=== PATIENT | male | born 1965 | race Caucasian/White ===

== ENCOUNTER 2018-09-04 09:27 | Emergency (ER) | payer OTHER, SELFPAY ==
[2018-09-04 09:30] VITALS: BP 130/82; PULSE 96; RESP 17; TEMP 36.8; O2SAT 94; BMI 41.5
[2018-09-04 09:33] VITALS: TEMP 36.8
--- NOTE | 2018-09-04 10:27 | ED.VISSUMM ---
- ER Visit Summary Date of Service: 09/04/18 Chief Complaint: Nausea, vomiting, diarrhea History of Present Illness: The patient is a 53 M presenting with nausea, vomiting, diarrhea. He states this has been ongoing for the past 2 weeks. He has had intermittent vomiting and diarrhea. He denies recent antibiotics or travel. He does have sick contacts. He was recently given a new diabetes medicine Bydureon. His last dose was 2.5 weeks ago. He is unsure if this is related. He tried to get in touch with his heel stiffener and has not been heard back from them. Physical Examination: Vitals are stable. Patient is afebrile. Alert no acute distress. HEENT exam is unremarkable. Neck is supple. Lungs are clear and equal bilaterally. Heart is regular rate and rhythm. Abdomen is soft nontender nondistended. No guarding or rebound Extremities are unremarkable. Skin is warm and dry. No focal neurologic deficit. Remainder of exam is unremarkable. Emergency Department Course and Treatment: Patient was given IV fluids, Zofran. CBC showed white count 16.0. Chemistries show glucose 207. Liver lipase are normal. On reevaluation, patient is feeling improved. His abdomen continues to be soft and nontender with no rebound or guarding. He is able to tolerate p.o. in the emergency department. He is given a prescription for Zofran and advised to follow-up with his primary care physician and heel stiffener. Advised return to ED if worsening complaints. Disposition: Discharge home Impression: Vomiting and diarrhea This note was generated with [employer] dictation software. It may contain incorrect words, spelling, and punctuation that were not noted in review of the chart prior to signing ED Disposition - Plan for ED Patient: Instructions: ED Abdominal Pain Unkn Cause Prescriptions: Ondansetron [Zofran Odt] 4 mg PO Q8H PRN PRN #10 tablet PRN Reason: Nausea Referrals: Aleyda Castro MD [Primary Care Provider] -
--- NOTE | 2018-09-04 10:30 | ED.DCSUM_ITS ---
- ER Visit Summary Date of Service: 09/04/18 Chief Complaint: Nausea, vomiting, diarrhea History of Present Illness: The patient is a 53 M presenting with nausea, vomiting, diarrhea. He states this has been ongoing for the past 2 weeks. He has had intermittent vomiting and diarrhea. He denies recent antibiotics or travel. He does have sick contacts. He was recently given a new diabetes medicine Bydureon. His last dose was 2.5 weeks ago. He is unsure if this is related. He tried to get in touch with his surgical services manager and has not been heard back from them. Physical Examination: Vitals are stable. Patient is afebrile. Alert no acute distress. HEENT exam is unremarkable. Neck is supple. Lungs are clear and equal bilaterally. Heart is regular rate and rhythm. Abdomen is soft nontender nondistended. No guarding or rebound Extremities are unremarkable. Skin is warm and dry. No focal neurologic deficit. Remainder of exam is unremarkable. Emergency Department Course and Treatment: Patient was given IV fluids, Zofran. CBC showed white count 16.0. Chemistries show glucose 207. Liver lipase are normal. On reevaluation, patient is feeling improved. His abdomen continues to be soft and nontender with no rebound or guarding. He is able to tolerate p.o. in the emergency department. He is given a prescription for Zofran and advised to follow-up with his primary care physician and surgical services manager. Advised return to ED if worsening complaints. Disposition: Discharge home Impression: Vomiting and diarrhea This note was generated with [employer] dictation software. It may contain incorrect words, spelling, and punctuation that were not noted in review of the chart prior to signing ED Disposition - Plan for ED Patient: Instructions: ED Abdominal Pain Unkn Cause Prescriptions: Ondansetron [Zofran Odt] 4 mg PO Q8H PRN PRN #10 tablet PRN Reason: Nausea Referrals: Aleyda Castro MD [Primary Care Provider] -
[2018-09-04] MEDS: Ondansetron 4 MG/2 ML Vial IV (10:56)
[2018-09-04] MEDS: 0.9% Normal Saline 1,000 ML 1000 ML IV (10:56)
[2018-09-04 10:58] LABS: Absolute Lymphocyte Count 1.85 X10^3/ul (0.83-4.51); Absolute Neutrophil Count 10.1 X10^3/uL (2.0-7.7); Basophil% 0.6 % (0-1); Eosinophils% 18.3 % (0-5); Hematocrit 49.1 % (40-54); Hemoglobin 17.7 g/dl (13.0-16.5); Lymphocyte # 1.85 X10^3/ul (4.0); Lymphocyte % 11.6 % (19-41); Mean Corpuscular Hgb 33.5 pg (27.0-32.0); Mean Platelet Vol. 10.4 fl (6.2-12.0); Monocyte# 0.94 X10^3/uL; Monocyte% 5.9 % (0-10); Neutrophil # 10.11 X10^3/uL (2.7-7.7); Neutrophil % 63.3 % (47-70); Platelet Count 225 K/mm3 (150-450); RBC Distribution Width CV 13.1 % (11.6-14.6); RBC Distribution Width SD 43.9 fl (35.1-43.9); Red Blood Count 5.28 M/mm3 (4.6-6.2)
[2018-09-04 10:59] VITALS: TEMP 36.9
[2018-09-04 11:00] LABS: Differential Indicated SCAN CRITERIA MET; Eosinophil# 2.92 X10^3/uL; POSITIVE COUNT NO; POSITIVE DIFFERENTIAL YES; POSITIVE MORPHOLOGY NO
[2018-09-04 11:10] LABS: Differential Comment SCANNED
[2018-09-04 11:18] LABS: AST(SGOT) 21 U/L (15-37); Alanine Aminotransfer ALT/SGPT 52 U/L (16-61); Albumin, Serum 3.2 g/dL (3.2-5.0); Alkaline Phosphatase 109 U/L (45-117); Anion Gap 8 (5-15); BUN 11 mg/dL (7-18); BUN/Creat Ratio 10.4 RATIO (10-20); Bilirubin, Direct 0.09 mg/dL (0.00-0.30); Calcium,Total 8.2 mg/dL (8.5-10.1); Chloride 108 mmol/L (98-107); Creatinine, Serum 1.06 mg/dL (0.70-1.30); EST Glomerular Filtration Rate 78 mL/min (>60); Est Glom Filt Rate - Afr Amer 94 mL/min (>60); Estimated Creatinine Clearance 84.17 ml/min; Globulin 3.7 g/dL (2.2-4.2); Glucose 207 mg/dL (74-106); Lipase 175 U/L (73-393); Potassium 3.7 mmol/L (3.5-5.1); Protein, Total 6.9 g/dL (6.4-8.2); Sodium Level 138 mmol/L (136-145)
[2018-09-04 11:27] VITALS: RESP 16
[2018-09-04 12:00] VITALS: RESP 17; TEMP 36.8
--- NOTE | 2018-09-04 12:53 | ED.DEP ---
ED Disposition - Plan for ED Patient: Instructions: ED Abdominal Pain Unkn Cause Prescriptions: Ondansetron [Zofran Odt] 4 mg PO Q8H PRN PRN #10 tablet PRN Reason: Nausea Referrals: Aleyda Castro MD [Primary Care Provider] -
[2018-09-04 13:02] VITALS: BP 119/83; PULSE 75; RESP 17; TEMP 36.8; O2SAT 96
[2018-09-06 14:17] LABS: Pathologist Review Reviewed
== END 2018-09-04 13:04 | disposition home or self-care (01) ==
LOC: ED 11:19
PROVIDERS: Emergency Provider Emergency Medicine
DX: R11.2 Nausea with vomiting, unspecified (principal); R19.7 Diarrhea, unspecified; R10.9 Unspecified abdominal pain; E11.9 Type 2 diabetes mellitus without complications; Z90.49 Acquired absence of other specified parts of digestive tract
CPT/HCPCS: 80048; 80076; 83690; 85025; 96361; 96374; 99283; J7030; A4216; J2405

== ENCOUNTER 2020-07-02 20:00 | Emergency (ER) | payer OTHER, SELFPAY ==
[2020-07-02 20:01] VITALS: BP 147/88; PULSE 78; RESP 17; TEMP 35.8; O2SAT 96; BMI 14.8
--- NOTE | 2020-07-02 20:13 | ED.VIS.GEN ---
History of Present Illness Chief Complaint: Lower Extremity Injury Informant: Patient Onset: Hours Context: Sudden Onset Timing: Continuous Quality: Pain Location: Initially left hip now left thigh and calf with swelling Current Severity: Moderate Maximum Severity: Moderate Worsened by: Movement Relieved by: Better if still Associated Symptoms: Question mild shortness of breath no chest discomfort Narrative: Patient is a middle-age male who was diagnosed with Covid May. He has a remote history of DVT left lower extremity, 3.5 years ago. Patient denies fever or chills. Patient denies night sweats. Patient states he has had shortness of breath since diagnosis with Covid. He denies chest discomfort. He denies black or maroon-colored stool. Denies blood in the stool. He denies hematuria. He denies epistaxis. He has no contraindication to anticoagulation. Prior similar symptoms: Yes - Prior DVT Recent Illness/Hospitalization: Yes - COVID-19 infection - Past Medical History (1) COVID-19 Status: Acute (2) History of DVT (deep vein thrombosis) Status: Acute (3) History of hypertension Status: Acute (4) History of hyperlipidemia Status: Acute (5) History of pernicious anemia Status: Acute Past Medical History - Allergies and Home Meds Allergies/Adverse Reactions: Allergies dulaglutide [From Trulicity] Adverse Reaction (Verified 07/02/20 20:03) Nausea/Vom/Diarrhea exenatide [From Bydureon] Adverse Reaction (Verified 07/02/20 20:03) Nausea/Vom/Diarrhea semaglutide [From Ozempic] Adverse Reaction (Verified 07/02/20 20:03) Nausea/Vom/Diarrhea Primary Care Physician: Pradip Schneider III, MD [Primary Care Provider] - Prior records reviewed: Yes Surgical History: noncontributory Lives: Spouse/ Significant Other Smoking Status: Never smoker Alcohol: None Drugs: None Review of Systems General: Reports: Malaise. Denies: Chills, Fever, Subjective Eyes: Denies: Visual changes - bilaterally, Blurred Vision - bilaterally ENT: Denies: Bilateral ear pain, Rhinorrhea, Sore throat Cardiovascular: Denies: Chest pain, Palpitations, Heart racing Respiratory: Reports: Dyspnea, Dyspnea on exertion. Denies: Cough, Sputum, Orthopnea, Paroxysmal nocturnal dyspnea Gastrointestinal: Denies: Abdominal pain, Nausea, Vomiting, Diarrhea, Melena, Hematochezia Genitourinary: Denies: Hematuria, Frequency Musculoskeletal: Reports: Swelling, Extremity Pain. Denies: Myalgias, Arthralgias Skin: Denies: Rash, Wounds Neurological: Denies: Headache, Weakness Hematologic: Denies: Easy bruising, Easy bleeding Physical Exam Vital Signs/Narrative: Vital Signs Temp Pulse Resp BP Pulse Ox 07/02/20 20:01 96.5 F L 78 17 147/88 H 96 Inital Vital Signs reviewed: Yes General: Well nourished, Well developed, Obese Head: Normocephalic, Atraumatic Eyes: Perrl, EOMI Neck: Supple, Nontender Cardiovascular: Regular rate, Regular rhythm, No murmurs, Normal S1, Normal S2 Respiratory: No distress, CTA bilaterally, Chest nontender Abdomen: Soft, Nontender, Nondistended, Normal bowel sounds Rectal: Deferred Back: Nontender Extremities: - - Is swelling of the left lower extremity compared to the right. There is pain along the distribution deep venous system. There is no discoloration of the leg. There is no palpable cords.. Negative for: Nontender, No edema Neurological: Alert, Oriented x3, Cranial nerves II-XII grossly intact, Normal Strength, Normal Sensation Psychological: Normal affect Diagnostic/Tx/Re-eval Differential diagnoses include muscle strain, hematoma versus DVT. I was in form by the service order dispatcher patient has a clot from the left femoral vein past the trifurcation involving the peroneal vein etc. Plan is anticoagulation with Eliquis since he tolerated Eliquis in the past. He was given his first dose in the emergency department and prescription was written. - Medical Decision Making With acute swelling and pain in prior DVT with immobility and recent Covid infection concern patient has DVT. Noninvasive study was ordered. His shortness of breath may be due to the recent Covid infection versus pulmonary embolus. ED Disposition - Plan for ED Patient: Disposition: Home or Assisted Living Diagnosis: Acute deep vein thrombosis (DVT) of femoral vein of left lower extremity Instructions: ED Deep Vein Thrombosis (DVT) Prescriptions: Apixaban [Eliquis] 5 mg PO BID #74 tab Transmission Status: Pending to [id number] Referrals: Pradip Schneider III, MD [Primary Care Provider] - 1 Week
--- NOTE | 2020-07-02 20:26 | US_ITS ---
STUDY: VENOUS DOPPLER ULTRASOUND - BILATERAL LOWER EXTREMITIES REASON FOR EXAM: Male, 54 years old. BILAT SWELLING LT HIP AND CALF PAIN TECHNIQUE: Ultrasound evaluation of the deep vein system to include barillas-scale imaging and compression was performed. Barillas-scale imaging and Doppler sonographic evaluation, including duplex spectral analysis and qualitative color flow sonography, was performed. COMPARISON: None. FINDINGS: RIGHT LEG Common Femoral Vein: Normal compression, spontaneity and augmentation. Normal color Doppler. Common Femoral Vein/Greater Saphenous Junction: Normal compression, spontaneity and augmentation. Normal color Doppler. Deep Femoral Vein: Normal compression, spontaneity and augmentation. Normal color Doppler. Femoral Proximal: Normal compression, spontaneity and augmentation. Normal color Doppler. Femoral Middle: Normal compression, spontaneity and augmentation. Normal color Doppler. Femoral Distal: Normal compression, spontaneity and augmentation. Normal color Doppler. Popliteal Vein: Normal compression, spontaneity and augmentation. Normal color Doppler. Posterior Tibial Vein: Normal compression, spontaneity and augmentation. Normal color Doppler. Peroneal Vein: Normal compression, spontaneity and augmentation. Normal color Doppler. LEFT LEG Intraluminal clot is present throughout the full length of the left superficial femoral vein and extends into the popliteal vein. There is lack of vascular flow and compressibility in these regions due to the intraluminal clot. Clot is also present in the left peroneal vein Common Femoral Vein: Normal compression, spontaneity and augmentation. Normal color Doppler. Common Femoral Vein/Greater Saphenous Junction: Normal compression, spontaneity and augmentation. Normal color Doppler. Deep Femoral Vein: Normal compression, spontaneity and augmentation. Normal color Doppler. Posterior Tibial Vein: Normal compression, spontaneity and augmentation. Normal color Doppler. Peroneal Vein: Normal compression, spontaneity and augmentation. Normal color Doppler. US/Venous Duplex Imag/Nahid Extrem IMPRESSION: 1. Deep venous thrombosis of the left superficial femoral vein, popliteal vein, and the peroneal vein in the calf. 2. No demonstrated deep venous thrombosis of the right leg. Electronically Signed: Marcos Osborne MD at 21:11 EST , Service support ,
[2020-07-02 21:36] VITALS: BP 120/79; PULSE 78; RESP 16
== END 2020-07-02 21:46 | disposition home or self-care (01) ==
PROVIDERS: Emergency Provider Emergency Medicine; PCP Family Medicine
DX: I82.412 Acute embolism and thrombosis of left femoral vein (principal); Z86.718 Personal history of other venous thrombosis and embolism; I10 Essential (primary) hypertension; E78.5 Hyperlipidemia, unspecified; Z86.19 Personal history of other infectious and parasitic diseases
CPT/HCPCS: 93970; 99282

== ENCOUNTER 2021-04-06 12:41 | Emergency (ER) | payer OTHER, SELFPAY ==
[2021-04-06 12:42] VITALS: BP 135/84; PULSE 73; RESP 15; TEMP 36.5; O2SAT 95; BMI 44.2
--- NOTE | 2021-04-06 13:03 | EKG12_ITS ---
Test Reason : SOB Blood Pressure : / mmHG Vent. Rate : 071 BPM Atrial Rate : 071 BPM P-R Int : 176 ms QRS Dur : 118 ms QT Int : 396 ms P-R-T Axes : 046 -35 014 degrees QTc Int : 430 ms Normal sinus rhythm Left axis deviation Poor R wave progression Abnormal ECG Confirmed by LIVIER SAUCEDO, TRISHA ([id number]), marketing editor DORA MEJIA ([id number]) on 04/08/2021 1:23:11 PM Referred By: NIC Confirmed By:TRISHA MAIER MD
[2021-04-06 13:13] VITALS: O2SAT 96
[2021-04-06 13:19] VITALS: PULSE 71; RESP 22; O2SAT 96
--- NOTE | 2021-04-06 13:22 | RAD_ITS ---
HISTORY: SOB EXAMINATION/TECHNIQUE: XR Chest 2 Views: 2 views COMPARISON: None FINDINGS: LINES/DEVICES: None. LUNGS: No pulmonary consolidation, mass, or edema. No pleural effusion or pneumothorax. MEDIASTINUM AND CARDIOVASCULAR STRUCTURES: Cardiac silhouette not enlarged. Central airways and mediastinal contour are unremarkable. BONES AND SOFT TISSUES: No acute bony abnormalities. RAD/Chest PA and Lateral IMPRESSION: No radiographic evidence of acute cardiopulmonary disease. at 1418 Reported and signed by: Twan William MD Electronically Signed: Twan William MD at 14:17 EDT Tel , Service support ,
[2021-04-06 13:29] LABS: Absolute Lymphocyte Count 1.94 X10^3/uL (0.83-4.51); Absolute Neutrophil Count 6.3 X10^3/uL (2.0-7.7); Basophil# 0.04 X10^3/uL; Basophil% 0.4 % (0-1); Eosinophil# 0.17 X10^3/uL; Eosinophils% 1.8 % (0-5); Hematocrit 40.6 % (40-54); Hemoglobin 14.2 g/dL (13.0-16.5); Lymphocyte # 1.94 X10^3/ul (0.83-4.51); Lymphocyte % 20.9 % (19-41); Mean Corpuscular Hgb 32.4 pg (27.0-32.0); Mean Corpuscular Volume 92.7 fL (80-94); Mean Platelet Vol. 10.2 fl (6.2-12.0); Monocyte# 0.86 X10^3/uL; Monocyte% 9.3 % (0-10); NRBC Flagged by Analyzer 0 % (0-5); Neutrophil # 6.25 X10^3/uL (2.7-7.7); Neutrophil % 67.3 % (47-70); Platelet Count 207 K/mm3 (150-450); RBC Distribution Width CV 12.7 % (11.6-14.6); RBC Distribution Width SD 43.1 fl (35.1-43.9); Red Blood Count 4.38 M/mm3 (4.6-6.2); White Blood Count 9.3 K/mm3 (4.4-11.0)
--- NOTE | 2021-04-06 13:30 | ED.VIS.DYS ---
HPI History of Present Illness Chief Complaint: Shortness of Breath Informant: patient Narrative Narrative: Patient presents with exertional dyspnea that is been getting progressively worse for about 2 or so months. He states the last 2 weeks is more noticeable. He called today to get an appointment with his physician and on review of systems questions they referred him in here. They were concerned about pulmonary embolus. He has never had chest pain pressure or discomfort with this. Symptoms are clearly better at rest and worse when he walks. There is a strong family history of heart disease. His father had bypass surgery in his 40s. Patient was diagnosed with a DVT in June that was thought to be related to a likely episode of Covid in May. He is on Eliquis and states that he is taking it regularly. He has not had hemoptysis. He rarely coughs. No sputum production. No fevers or chills. No congestion. No allergic symptoms. No one else is ill. [facility] Medical History CPAP (continuous positive airway pressure) dependence Diabetes Hypertension Sleep apnea Spinal stenosis Home Medications amlodipine 10 mg PO DAILY 09/04/18 [History Last Taken Unknown] carvedilol 12.5 mg PO BID 09/04/18 [History Last Taken Unknown] lisinopril 40 mg PO DAILY 09/04/18 [History Last Taken Unknown] apixaban 5 mg PO BID #74 tab 07/02/20 [Rx Last Taken Unknown] ertugliflozin-sitagliptin 1 tab PO DAILY 07/02/20 [History Last Taken Unknown] ezetimibe [Zetia] 10 mg PO DAILY 04/06/21 [History Last Taken Unknown] pioglitazone [Actos] 30 mg PO DAILY 04/06/21 [History Last Taken Unknown] Allergy/AdvReac Type Severity Reaction Status Date / Time dulaglutide [From Trulicity] AdvReac Nausea/Vom/ Verified 04/06/21 12:45 Diarrhea exenatide [From Bydureon] AdvReac Nausea/Vom/ Verified 04/06/21 12:45 Diarrhea semaglutide [From Ozempic] AdvReac Nausea/Vom/ Verified 04/06/21 12:45 Diarrhea Family History Other Heart disease Surgical History History of cholecystectomy Social History Smoking Status: Never smoker ROS ROS ED Constitutional Constitutional ED: Denies chills or fever(s) Eyes Eyes: Denies blurry vision or change in vision ENT ENT ED: Denies rhinorrhea or sore throat Cardiovascular Cardiovascular: Denies chest pain, orthopnea, palpitations, paroxysmal nocturnal dyspnea or racing heartbeat Respiratory/Chest Respiratory/Chest: Reports cough and dyspnea on exertion; Denies orthopnea, paroxysmal nocturnal dyspnea or sputum Gastrointestinal Gastrointestinal: Denies nausea or vomiting Musculoskeletal Musculoskeletal: Denies arthralgias or myalgias Integumentary Denies Abrasions or rash Neurologic Neurologic: Denies headache(s), paresthesias or weakness Endocrine Endocrinology: Denies polydipsia or polyuria Hematologic/Lymphatic Hematologic/Lymphatic: Reports easy bleeding and easy bruising Allergic/Immunologic Allergic/Immunologic ED: Denies mouth swelling or urticaria EXAM Physical Exam Const Vital Signs: 04/06/21 12:42 04/06/21 13:13 04/06/21 13:19 Temperature 97.7 F L Temperature Source Temporal Pulse Rate 73 71 Respiratory Rate 15 22 H Respiratory Effort Non-Labored Short of Breath Respiratory Depth Normal Respiratory Pattern Normal Blood Pressure 135/84 H Blood Pressure Mean 101 Pulse Ox 95 96 Oxygen Delivery Method Room Air Room Air Room Air 04/06/21 14:00 Temperature Temperature Source Pulse Rate 69 Respiratory Rate 20 H Respiratory Effort Respiratory Depth Respiratory Pattern Blood Pressure 123/75 H Blood Pressure Mean 91 Pulse Ox 96 Oxygen Delivery Method Room Air Positive well nourished, well developed and obese General Appearance ED: well developed and NAD; Negative for pallor Nutritional Appearance: obese HEENT Reports moist mucous membranes atraumatic Eyes General Eye ED: Negative for pale conjunctiva or scleral icterus Neck no JVD Resp normal respiratory effort and clear to auscultation bilaterally Auscultation: Negative for rales, rhonchi, wheezes or diminished lung sounds Cardio regular rate, regular rhythm and no murmurs GI non-tender and non-distended Palpation: soft Back/Spine no CVA tenderness and normal to inspection Extremity normal to inspection General Extremety ED: Negative for edema or tenderness General Extremity: Negative for edema Neuro oriented x3 Sensorium / Orientation: alert Psych mental status grossly normal Thought Process: normal thought process Skin General Skin Exam: Negative for pallor Lesions: no lesions Rashes: no rashes MDM MDM MDM Narrative Medical decision making narrative: Patient's blood work shows a normal CBC. No sign of anemia. Electrolytes are normal. Glucose is high at 277. Troponin is negative despite 2 months of symptoms. BNP is negative. Even though this patient is on Eliquis there were concerns of pulmonary embolus. So we did a CTA. This showed no pulmonary embolus but also no dissection and no other cause for his symptoms. Patient's original plan was to make an appointment to see his doctor. He is okay going home as the symptoms have been predictable for 2 months. He will call Thursday morning for an appointment. Lab Data Attestation: I reviewed the patient's lab results. Labs: Laboratory Results - last 24 hr 04/06/21 04/06/21 04/06/21 13:10 13:10 13:10 WBC 9.3 RBC 4.38 L Hgb 14.2 Hct 40.6 MCV 92.7 MCH 32.4 H MCHC 35.0 RDW Std Deviation 43.1 RDW Coeff of Josue 12.7 Plt Count 207 MPV 10.2 Immature Gran % (Auto) 0.300 Neut % (Auto) 67.3 Lymph % (Auto) 20.9 [place] % (Auto) 9.3 Eos % (Auto) 1.8 Baso % (Auto) 0.4 Absolute Neuts (auto) 6.3 Absolute Lymphs (auto) 1.94 Nucleated RBC % 0 Sodium 138 Potassium 4.3 Chloride 106 Carbon Dioxide 27.0 Anion Gap 5 BUN 18 Creatinine 1.08 Estim Creat Clear Calc 80.74 Est GFR (MDRD) Af Amer 91 Est GFR (MDRD) Non-Af 76 BUN/Creatinine Ratio 16.7 Glucose 277 H Calcium 9.0 Troponin I High Sens 11 B-Natriuretic Peptide 10.9 Radiography Diagnostic Testing: Radiology Impression Chest X-Ray 04/06/21 13:22 IMPRESSION: No radiographic evidence of acute cardiopulmonary disease. at 1418 Reported and signed by: Twan William MD Electronically Signed: Twan William MD at 14:17 EDT Tel , Service support , Chest CTA 04/06/21 14:24 IMPRESSION: Normal CTA chest examination, without a demonstrated pulmonary embolism or arterial dissection. Electronically Signed: Evan Rios DO at 15:54 EDT Tel [phone], Service support , EKG Initial EKG: Comments: EKG done for dyspnea read by me shows sinus rhythm with overall rate of 71. No ectopy. No acute ST elevation or depression. TX interval, QRS duration and QTc are normal. Discharge Plan Triage Chief Complaint: Shortness of Breath ED Provider: Mariano Garcia Dx/Rx/DC Orders Clinical Impression: Dyspnea on exertion Instructions: ED Dyspnea Prescriptions: No Action carvedilol 25 MG tablet 12.5 mg PO BID RF: 0 amlodipine 10 MG tablet 10 mg PO DAILY RF: 0 lisinopril 40 MG tablet 40 mg PO DAILY RF: 0 apixaban 5 MG tablet 5 mg PO BID Qty: 74 RF: 0 ertugliflozin-sitagliptin 1 EACH tablet 1 tab PO DAILY RF: 0 pioglitazone [Actos] 30 mg Tablet 30 mg PO DAILY RF: 0 ezetimibe [Zetia] 10 mg Tablet 10 mg PO DAILY RF: 0 Primary Care Provider: Mynor Connelly Referrals: Mynor Connelly MD [Primary Care Provider] - As soon as possible Disposition Disposition: Home, Self Care
[2021-04-06 13:42] LABS: Anion Gap 5 (5-15); BUN 18 mg/dL (7-18); BUN/Creat Ratio 16.7 RATIO (10-20); Chloride 106 mmol/L (98-107); Creatinine, Serum 1.08 mg/dL (0.70-1.30); EST Glomerular Filtration Rate 76 mL/min (>60); Est Glom Filt Rate - Afr Amer 91 mL/min (>60); Estimated Creatinine Clearance 80.74 ml/min; Glucose 277 mg/dL (74-106); Potassium 4.3 mmol/L (3.5-5.1); Sodium Level 138 mmol/L (136-145); Troponin-I HS 11 pg/mL (3.0-78.0)
[2021-04-06 13:47] LABS: BNP,B-Type NATRIURETIC PEPTIDE 10.9 pg/mL (0-100)
[2021-04-06 14:00] VITALS: BP 123/75; PULSE 69; RESP 20; O2SAT 96
--- NOTE | 2021-04-06 14:24 | CT_ITS ---
STUDY: CTA CHEST REASON FOR EXAM: Male, 55 years old. SOB RADIATION DOSAGE (If Supplied By Facility): CTDIvol = ( 19.74 ) mGy, DLP = ( 730.15 ) mGycm TECHNIQUE: The examination was performed with the intravenous administration of IV 100mL Isovue-370. Post-processing of the angiographic images was performed, with multiplanar reformation and 3D reconstruction. Individualized dose optimization techniques were used for this CT. COMPARISON: None. FINDINGS: Normal enhancement of the main pulmonary artery and right and left pulmonary arteries. Normal enhancement of the bilateral peripheral pulmonary arteries. There is no demonstrated pulmonary embolism. Normal thoracic aorta and visualized great vessels. There is no demonstrated aortic dissection. Normal heart and pericardium. Normal mediastinum. Normal hilar regions. Normal visualized trachea and bronchi. The lungs are well expanded. Normal pulmonary parenchyma. Normal pleura. Normal chest wall structures. Degenerative vertebral changes. Normal visualized upper abdomen. CT/CTA Chest W/WO Contrast IMPRESSION: Normal CTA chest examination, without a demonstrated pulmonary embolism or arterial dissection. Electronically Signed: Evan Rios DO at 15:54 EDT Tel [phone], Service support ,
[2021-04-06 16:55] VITALS: BP 129/78; PULSE 84; RESP 18; O2SAT 97
--- NOTE | 2021-04-06 16:56 | ED.RN ---
THIS NURSE REVIEWED D/C INSTRUCTIONS WITH PT. PT VERBALIZED UNDERSTANDING OF INSTRUCTIONS. IV D/C. IV CATHETER INTACT. PT TOLERATED WELL. PT DENIES FURTHER NEEDS OR QUESTIONS AT THIS TIME
== END 2021-04-06 16:57 | disposition home or self-care (01) ==
PROVIDERS: Emergency Provider Emergency Medicine; PCP Family Medicine
DX: R06.09 Other forms of dyspnea (principal); I10 Essential (primary) hypertension; E11.9 Type 2 diabetes mellitus without complications; G47.30 Sleep apnea, unspecified; Z79.01 Long term (current) use of anticoagulants; Z79.84 Long term (current) use of oral hypoglycemic drugs; Z82.49 Family history of ischemic heart disease and other diseases of the circulatory system; Z86.718 Personal history of other venous thrombosis and embolism; Z86.16 Personal history of COVID-19
CPT/HCPCS: 71046; 71275; 80048; 83880; 84484; 85025; 93005; 99284; Q9967; A4216

== ENCOUNTER → 2021-12-05 | Outpatient (CLI) | payer OTHER, SELFPAY ==
--- NOTE | 2021-12-05 09:09 | CR.HP_ITS ---
CR - History & Physical - General Arrival date:: 12/05/21 Arrival time:: 08:00 Date of Referral:: 11/21/21 Date of CR Evaluation:: 12/05/21 Referring Physician: Bailey Steele Primary Diagnosis: S/P CABG - History of Present Cardiac Event Onset Date: Enter Onset Date of cardiac illnesses in Comment field below Coronary Artery Bypass Graft:: Yes - 10/18/2021 5 vessel bypass Type of Symptoms:: really fatigue, thought related to COVID-19, negative stress test, did calcium study +, went right to surgery no sense in doing heart cath. Were there any complications?: none - Sleep Disorder Evaluation Hx of Sleep Apnea: Yes Do you snore loudly (louder than talking or can be heard through closed doors)?: Yes Do you often feel tired/ fatigued/ sleepy during daytime?: No Has anyone observed you stop breathing during sleep?: Yes History of Hypertension (for STOP score): Yes - Has home CPAP at 8-20cm H2O uses nightly for his SAURABH. STOP Results: Positive - Medications Home Medications: Ambulatory Orders Medication Instructions Recorded amlodipine 10 mg PO DAILY 09/04/18 carvedilol 12.5 mg PO BID 09/04/18 lisinopril 20 mg PO DAILY 09/04/18 apixaban 5 mg PO BID #74 tab 07/02/20 ertugliflozin-sitagliptin 1 tab PO DAILY 07/02/20 ezetimibe [Zetia] 10 mg PO DAILY 04/06/21 pioglitazone [Actos] 30 mg PO DAILY 04/06/21 empagliflozin [Jardiance] mg 12/05/21 insulin glargine 44 unit SUBCUT DAILY 12/05/21 oxygen-air delivery systems 12/05/21 [[facility] Nasal Cpap System] - Allergies Allergies/Adverse Reactions: Allergies dulaglutide [From Trulicity] Adverse Reaction (Verified 04/06/21 12:45) Nausea/Vom/Diarrhea exenatide [From Bydureon] Adverse Reaction (Verified 04/06/21 12:45) Nausea/Vom/Diarrhea semaglutide [From Ozempic] Adverse Reaction (Verified 04/06/21 12:45) Nausea/Vom/Diarrhea Advanced Directives - Advanced Directives 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 Had contact w/person w/symptoms or Covid-19 (+) last 14 days: No Has High Risk Exposures ID'd by Health dept/Inf Control team: No 65 years or older:: No Lives in Assisted Living facility:: No Has a chronic lung disease or moderate to severe asthma:: No Has a serious heart condition:: Yes Diabetic:: Yes Has chronic kidney disease undergoing dialysis:: No Has liver disease:: No - Past Medical Illness Medical History: Past Medical History (Last Updated 12/05/21 @ 09:20 by Khari Dale, CHEMICAL RESEARCH ENGINEER, PLASTICS BENCH MECHANIC, BS) Chronic anticoagulation Z79.01 CPAP (continuous positive airway pressure) dependence Z99.89 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 Mariano Garcia MD) History of cholecystectomy Z90.49 Surgical History: noncontributory - Family History Summary Family History: Family History (Last Reviewed 04/06/21 @ 13:[address] Mariano Garcia MD) Other Heart disease Social History - Smoking History Smoking Status: Never smoker Hx Tobacco Use: No Hx Smoking Exposure: No - Alcohol Use Alcohol Usage: Yes - very rarely - Substance Abuse Hx Substance Use: No - Occupation Occupation (List type of work in comments):: Employed Hours worked per day:: 6 - sometimes 8-12 Hrs Returned to work on:: 10/28/21 - working from home - Hobbies, Recreation, Social Activities Hobbies: None Recreational Activities: I am able to engage in most, but not all activities Social Environment - Status Marital Status: - Current Living Arrangements Living Environment:: Spouse - Children How many children do you have?: 2 Do any of your children live nearby?: Yes - Safety Do you feel safe in your surroundings?: Yes - Assistance Do you need any assistance at home?: none Review of Systems - Review of Systems Hints: Right click = Denies ([place]). Left click = Reports ([place]) Review of Present Symptoms: Reports: Wound Healing, Fatigue - some, Appetite - Normal, Appetite - Special Diet - Diabetic Diet, Sleep - Normal. Denies: Shortness of Breath at Rest, Shortness of Breath with Exertion, Operative Discomfort, Dizziness/Lightheadedness, Heart Arrhythmia/Irregularities, Sexual Changes - Pain Is Patient Pain Free?: Yes Pain Location: none Pain Level: 0/10 Risk Factor Assessment - Vital Signs Temperature: 98.1 F Respiratory Rate: 14 Pulse Ox: 96 Blood Pressure: 128/78 - Pulse Pulse Rate: 68 Pulse Rhythm: Regular - Hypertension Blood Pressure Sitting - Left Arm: 128/78 - Blood Cholesterol/Lipids Total Cholesterol (mg/dL) Goal = less than 200 mg/dL: 248 HDL Cholesterol (mg/dL) Goal = less than 40 mg/dL: 44 LDL Cholesterol (mg/dL) Goal = less than 70 mg/dL: 172 Triglycerides (mg/dL) Goal = less than 150 mg/dL: 162 - Diabetes Diabetic History: Type II, Medication Dependent, Insulin Dependent Nutrition Referral for Diabetes: Yes - Obesity Height: 5 ft 10 in Weight:: 310 lb Weight in Pounds: 310.0 lbs Weight Source: Estimated by Patient Body Mass Index (BMI): 44.4 Nutritional Referral for Obesity: Yes - Physical Inactivity Physical Inactivity: Reg Exercise 30 min/day, Recreational activity - Risk Stratification Risk Guidelines: Lowest Risk: Risk Factor for Smoking, Risk Factor for Diabetes, Risk Factor for Sedentary Lifestyle, Risk Factor for Depression, Moderate Risk: Risk Factor for Dyslipidemia, Risk Factor for Hypertension, Highest Risk: Risk Factor for Obesity - Family History Family History: Family History (Last Reviewed 04/06/21 @ 13:[address] Mariano Garcia MD) Other Heart disease Motivation - Motivation to Participate On a scale of 1 to 10, how prepared are you to commit to attending program?: 9 What do you see as barriers to successfully being able to complete the program?: none What do you see as the benefits of succesfully completing the program? In other words, what do you hope to get out of participating in the program?: get back to normal active lifestyle Are there issues you are dealing with that will interfere with completing the program?: none Do you have a spouse or signficant other, family or friends who will help support you to complete the program?: Yes
[2021-12-05 09:25] VITALS: BP 128/78; PULSE 68; RESP 14; TEMP 36.7; O2SAT 96; BMI 44.4
--- NOTE | 2021-12-05 10:10 | CR.ITP_ITS ---
Diagnosis - General Information Admitting Diagnosis: S/P CABG Secondary Diagnosis: DM TYPE II, HLD, HTN, ASHD, DVT Personal Learning Style:: Audio/Visual, Written Barriers to Learning: No Barriers Stage of change r/t lifestyle modifications:: Action Gave educational material for:: Treating Heart Disease, Emotions & Heart Disease, Stress Management & Relaxation, Sleep Disorders & Heart Disease, How The Heart Works, What it means to have Heart Disease, How Coronary Artery Disease is Diagnosed, Heart Procedures, What Heart Medications Do, Risk Factors & Modifications, Living an Active Life, Nutrition - Education/Goals Individual Counseling: Initial Assessment: Abnormal Cholesterol Levels, High Blood Pressure, Overweight/Obesity - BMI 44.9, Diabetes, Metabolic Syndrome (as evidenced by 3 of 5 A-E below), A. Fasting Blood Sugar >100, B. Waist Circumference >35/Females >40/Males, C. High Triglycerides >150, Hypertension Cardiac Rehabilitation Goals: 1. Maintain the individual as the primary focus of care. 2. To improve the patient's quality of life. 3. Identification of cardiac risk factors and provide cardiac risk factor management. 4. Enhance the psychosocial status of the patient. 5. Reconditioning enough to allow the patient to resume customary activities. 6. Control symptoms of cardiac disease Personal Goals: Initial Assessment: Improve energy level, Participate in home exercise program, Get back to work, or to resume activities faster, Improve knowledge of cardiac disease, Improve muscle strength and endurance, Improve diet and eating habits (eat healthier), Control risk factors (learn risk factor modification) Scale for measuring improvement of personal goals: Enter appropriate number in Comments. 2 = Unchanged. 3 = Slightly Better. 4 = Moderate Improvement. 5 = Met my Goal - Diagnosis & Disease Process Outcomes/Goals: Pt IDs own risk factors & lifestyle modifications by Session 10, Verbalizes symptoms of angina & response by session 3., Pt independently manages Plan/Interventions: Assist Pt to ID & engage in lifestyle modification to reduce CVD risk, Instruct on individual risk factors, Review symptoms of angina & emergency actions, Review secondary diagnosis & identify educational needs. - Safety Referral to Physical Therapy: No Referral to [facility] Case Management: No Fall Risk Assessed:: Yes Assistive Devices:: None Exercise - Initial Assessment - Visit Date of Eval: 12/05/21 Session #:: 0 - STARTING CR ON 12/09/2021 @ 09:30 Mets: Pre-: >7 METS for 30 minutes by discharge - Physician Prescribed Exercise Modalities: Treadmill, Airdyne, NuStep Frequency: 3x/week for 12 weeks [36 sessions] Intensity: 60-80% of age predicted maximum heart rate reserve Current METSs:: 3.0 Target Heart Rate:: 107-140 Resting Blood Pressure: 128/78 EKG Type: NSR Current Physical Activity or Exercising minutes: 30 - Outcomes & Goals Goals:: Verbalizes understanding of THR, RPE & goal METS by session 6, Documents in home exercise log/reports 30 min aerobic 5 day/wk by DC, Demonstrates accurate pulse taking by DC - Intervention & Plan Exercise Program Goals: Instruct on personal THR & RPE, Instruct on MET level & personal MET goal, Show patient to take own pulse /validate performance until accurate, Instruct on home exercise - Physical Activity Home Exercise Physical Activity - Home Exercise: Safe Exercise, Warm-up, Self-monitoring, Cool-Down, Home Exercise > 30 min Daily, Sitting Time <3 hours/daily - Outcomes & Goals Outcomes/Goals: Demonstrates correct Warm-up/exercise Cool-Down (S3) if = 2.5 METs, Verbalizes symptoms of exercise intolerance by Session 3 (S3), Demonstrate safe equipment use (S3) & follows exercise prescrition (6) - Intervention & Plan Plan/Intervention: Instruct warm-up & cool-down if exercising at > 2 METs, Instruct on symptoms of exercise intolerance & actions to take, Instruct & monitor on saf, Assess intial functional capacity & safety risk Nutrition - Initial Assessment - Program Goals Nutrition Program Goals: LDL <100 optimal. 100 - 129 Near optimal. 130 - 159 Borderline High. 160 - 189 High. Total Cholesterol <200 desirable. 200 - 239 Borderline High. >/= 240 High. HDL < 40 Low >/=60 High. Triglycerides <150 desirable. <199 optimal. VlDL 5 - 40. HgbA1C <7%. BMI <25 Patient has diagnosis of Hyperlipidemia (ICD E78)?: Yes - Visit Date of Assessment:: 12/05/21 Session #:: 0 - Cholesterol/Lipids Triglycerides (mg/dL): 162 Total Cholesterol (mg/dL): 248 LDL Cholesterol (mg/dL): 172 HDL Cholesterol (mg/dL): 44 Determine presence & major risk factors that modify LDL goal: Hypertension or hypertensive medication, Family history of premature CHD in Male < 55 years: female <65 yearsFa, Age men > 45 years; women >/= 55 years Outcomes/Goals: Pt IDs own risk factors & lifestyle modifications by Session 10, Verbalizes symptoms of angina & response by session 3., Pt independently manages Intervention/Plan: Instruct on personal lipid levels & lipid goals/NCEP guidelines, Instruct on cholesterol Referral to dietitian:: Yes - MEDICAL NUTRITION - Diabetes (Other Core Measures) Diabetes Type: Diagnosis Type II ICD-10 E11 Outcomes/Goals:: Able to state symptoms of, Able to state, Able to state Intervention/Plan:: Instruct on, Refer to, Instruct on - Weight Mgt (Other Care) Not Applicable: No Height: 5 ft 10 in Weight:: 329 lb BMI: 47.2 Diagnosis Overweight/Obesity BMI> 30% ICD-10 E66: Yes Diagnosis High BMI/Morbid Obesity BMI> 35% ICD-10 Z68: Yes Outcomes/Goals: Pt sets, maintains & shows weight loss goal & trend during rehab Intervention/Plan: Instruct on ideal BMI & set weight loss goal w/patient, Assist pt to ID & incorporate diet changes for weight loss by S9, Refer to Structured Weight Loss program as appropriate, Encourage goal of using 250- 300dcal per session for weight loss - Healthy Eating Habits Will attend diet classes:: Yes Outcomes/Goals:: Consume diet rich in vegs,fruits,whole grain/high fiber,fish,lean meat, Limit sat/trans fats,cholesterol & added salts & sugars Intervention/Plan:: Assess current eating habits - Education Gave educational materials for:: Signs & symptoms of hypoglycemia, Signs & symptoms of hyperglycemia, Relate diabetes to coronary artery disease, Healthy eating Nutrition - 30-Day Assessment Nutrition - 60-Day Assessment Nutrition - 90-Day Assessment Nutrition - Final Assessment Medical - Initial Assessment - Visit Date of Eval: 12/05/21 Session #:: 0 - Medication Compliance Preventative Medication(s):: Aspirin, Statin/lipid, Beta mally, Eliquis H/O mental health issues: depression, anxiety, or addiction?: No Doesn?t believe in the benefits of treatment?: No Believes medications are unnecessary or harmful?: No Has a concern about medication side effects?: No Expresses concern over the cost of medications?: No Outcomes/Goals: Verbalizes medications,desired effect & common side effects @ DC, Pt self-reports following medication regimen, Keeps card in wallet w/medications listed by DC Interventions/plans: Instruct on medication effects & side effects, Instruct importance of taking meds as ordered & assist problem solving - Tobacco Use Tobacco Use: Non-smoker - Hypertension Hypertension Diagnosis:: Hypertension ICD-10 I10 Resting Blood Pressure:: 128/78 [place] [employer] Hypertension Guidelines: [place] [employer] Hypertension Guidelines. Normal BP Less than 120/80. Elevated BP 120/80. Hypertension Stage 1: BP 130-139/80-89. Hypertesnion Stage 2: BP 140 or higher/90 or higher. Hypertension Crisis: BP higher than 180/120 Outcomes/Goals: Able to verbalize/achieve optimal blood pressure <130/80, Incorporates diet changes & exercise for blood pressure control by DC Interventions/plan: Instruct on optimal blood pressure, hypertension & medications, Instruct on effects of sodium, alcohol, stress, exercise &hypertension - Tobacco Cessation Referral Smoking Cessation Referral:: No Individual Education/Counseling:: No Education Schedule Given:: Yes Medical- 30-Day Assessment Medical- 60-Day Assessment Medical- 90-Day Assessment Medical - Final Assessment Psychosocial - Initial Assess - VIsit Date of Eval: 12/05/21 Session #:: 0 Not Applicable: Yes History of previous Mental disease:: No - Psychosocial Test Tool Used:: Finestrella QOL Cardiac, PHQ-9 Questionnaire phq-9 Severity: Severity. 1-4 Minimal Depression. 5-9 Mild Depression. 10-14 Moderate Depression. 15-19 Moderately Sever Depression. 20-27 Severe Depression. Rule: - Referral to Behavioral Health PS - Interventions: Yes Referral to Physician if PHQ-9 if score is 5-9:, Yes Attend Stress Management Classes, No Referral to Behavioral Health if PHQ-9 score >9:, No Referral to [facility] - Outcomes/Goals: See list Psychosocial Outcomes/Goals:: ID's personal stressors & 2 strategies to manage stress by discharge - Intervention/Plan: See List Interventions/Plan:: Assess stressors,coping strategies & signs of derpression on admission, Instruct/assist pt to develop coping & personal stress Mgt strategies, Refer to Physician if appropriate, Instruct patient to recognize signs & symptoms of depression, Instruct patient to recog Psychosocial - 30-Day Assess Psychosocial - 60-Day Assess Psychosocial - 90-Day Assess Psychosocial - Final Assessmen Patient Health Questionnaire Initial Assessment 1. Little interest or pleasure in doing things: Several days 2. Feeling down, depressed, or hopeless: Several days 3. Trouble falling or staying asleep, or sleeping too much: Not at all 4. Feeling tired or having little energy: More than half the days 5. Poor appetite or overeating: Several days 6. Feeling bad about yourself -- or that you are a failure or have let yourself or your family down: Several days 7. Trouble concentrating on things, such as reading the newspaper or watching television: Several days 8. Moving or speaking so slowly that other people could have noticed. Or the opposite - being so fidgety or restless that you have been moving around a lot more than usual: Not at all 9. Thoughts that you would be better off , or of hurting yourself in some way: Not at all How difficult have these problems made it for you to do your work, take care of things at home, or get along with other people?: Somewhat difficult Total Score: 7 VIOLETA-Q SV Test - Statements CAD is a disease of the arteries in the heart: False Examples of risk factors for heart disease: True Angina is chest pain or discomfort: True The benefits of resistance training include: True Eating more meat and dairy products: False Anti-platelet medications such as aspirin are important: True The only effective way to manage stress: False An exercise warm-up slowly increases heart rate: True Prepared, processed foods usually have high sodium: True Depression is common after a heart attack: True The statin medications lower cholesterol: True To control blood pressure, lower the amount of sodium: True If someone gets chest discomfort during walking: False Transfats are partially hydrogenated vegetable oils: True Sleep apnea that is not treated increases the risk: False To control cholesterol, one should become a vegetarian: False Someone knows if he/she is exercising at the right level: True Diabetes cannot be prevented with exercise & health eating: False Stress is a large risk for heart attack: True A diet that can help lower blood pressure is rich in: True - Total Score Total Correct Responses: 20 Self-Efficacy Initial Assessment We would like to know how confident you are in doing certain activities. Please select your confidence level for:: Select your confidence level for the following using the scale 1-10 where 1 is not at all confident and 10 is totally confident. Your score is the average of all 6 responses. Fatigue: How confident are you that you can keep the fatigue caused by your dis ease from interfering with the things you want to do? Select Number: 8 Physical Discomfort or Pain: How confident are you that you can keep the physic al discomfort or pain of your disease from interfering with the things you want to do? Select Number: 7 Emotional Distress: How confident are you that you can keep the emotional distress caused by your disease from interfering with the things you want to do? Select Number: 6 Other Symptoms or Health Problems: How confident are you that you can keep other symptoms or health problems from interfering with the things you want to do? Select Number: 7 Different Tasks and Activities: How confident are you that you can do the different tasks and activities needed to manage your health condition so as to reduce your need to see a doctor? Select Number: 8 Medication: How confident are you that you can do things other than just taking medication to reduce how much your illness affects your everyday life? Select Number: 8 Total Score:: 7 Nutrition Survey - Nutrition Survey Initial Have you lost >10 lbs over the past 2 months without trying?: No Are you following a special diet at home for diabetes, low fat, or low salt?: Yes Are you interested in meeting with a dietitian for help understanding your diet?: Yes Do you eat less than 3 meals a day?: No Do you eat fatty meats (villavicencio, sausage, ribs, etc), fried foods, desserts, large amounts of salad dressings, margarine, butter, or cheese most days?: No Do you have food allergies? [Enter types in comment field]: No Do you eat in restaurants more than 3 times a week?: Yes Do you season food with salt, seasoning salt, or garlic salt?: No Do you used canned, boxed, frozen meals, or soups, seasoning packets?: No Total Score:: 3
[2021-12-05 10:23] VITALS: BP 128/78; BMI 47.2
== END | disposition home or self-care (01) ==
LOC: CR 08:12
PROVIDERS: PCP Family Medicine; Referring Provider Internal Medicine Cardiovascular Disease; Visit Provider Internal Medicine Cardiovascular Disease
DX: Z95.1 Presence of aortocoronary bypass graft (principal); I82.409 Acute embolism and thrombosis of unspecified deep veins of unspecified lower extremity; E11.9 Type 2 diabetes mellitus without complications; I10 Essential (primary) hypertension; I25.10 Atherosclerotic heart disease of native coronary artery without angina pectoris; E78.5 Hyperlipidemia, unspecified

== ENCOUNTER 2021-12-25 10:35 | Outpatient (RCR) | payer OTHER, SELFPAY ==
[2021-12-05 10:23] VITALS: BMI 47.2
== END 2022-01-02 23:59 ==
LOC: DC 10:35
PROVIDERS: PCP Family Medicine; Referring Provider Internal Medicine Cardiovascular Disease; Visit Provider Internal Medicine Cardiovascular Disease
DX: E11.9 Type 2 diabetes mellitus without complications (principal); Z86.79 Personal history of other diseases of the circulatory system; Z86.39 Personal history of other endocrine, nutritional and metabolic disease
CPT/HCPCS: G0108

== ENCOUNTER 2022-01-01 09:30 | Outpatient (RCR) | payer OTHER, SELFPAY | END 2022-01-02 23:59 | LOC: CR 09:30 | PROVIDERS: PCP Family Medicine; Referring Provider Internal Medicine Cardiovascular Disease; Visit Provider Internal Medicine Cardiovascular Disease | DX: Z95.1 Presence of aortocoronary bypass graft (principal) | CPT/HCPCS: 93798 ==

== ENCOUNTER 2022-01-20 10:15 | Outpatient (RCR) | payer OTHER, SELFPAY ==
[2021-12-05 10:23] VITALS: BMI 47.2
== END 2022-02-02 23:59 ==
LOC: DC 10:15
PROVIDERS: PCP Family Medicine; Referring Provider Internal Medicine Cardiovascular Disease; Visit Provider Internal Medicine Cardiovascular Disease
DX: E11.9 Type 2 diabetes mellitus without complications (principal); Z86.39 Personal history of other endocrine, nutritional and metabolic disease; Z86.79 Personal history of other diseases of the circulatory system
CPT/HCPCS: 97802

== ENCOUNTER 2022-01-31 09:30 | Outpatient (RCR) | payer OTHER, SELFPAY ==
[2021-12-05 10:23] VITALS: BMI 47.2
== END 2022-02-02 23:59 ==
LOC: CR 09:30
PROVIDERS: PCP Family Medicine; Referring Provider Internal Medicine Cardiovascular Disease; Visit Provider Internal Medicine Cardiovascular Disease
DX: Z95.1 Presence of aortocoronary bypass graft (principal)
CPT/HCPCS: 93798

== ENCOUNTER 2022-02-05 09:51 | Outpatient (RCR) | payer OTHER, SELFPAY ==
[2021-12-05 10:23] VITALS: BMI 47.2
== END 2022-03-05 23:59 ==
LOC: DC 09:51
PROVIDERS: PCP Family Medicine; Referring Provider Internal Medicine Cardiovascular Disease; Visit Provider Internal Medicine Cardiovascular Disease
DX: E11.9 Type 2 diabetes mellitus without complications (principal); Z86.79 Personal history of other diseases of the circulatory system; Z86.39 Personal history of other endocrine, nutritional and metabolic disease
CPT/HCPCS: G0108

== ENCOUNTER 2022-03-05 08:00 | Outpatient (RCR) | payer OTHER, SELFPAY ==
[2021-12-05 10:23] VITALS: BMI 47.2
== END 2022-03-05 23:59 ==
LOC: CR 08:00
PROVIDERS: PCP Family Medicine; Referring Provider Internal Medicine Cardiovascular Disease; Visit Provider Internal Medicine Cardiovascular Disease
DX: Z95.1 Presence of aortocoronary bypass graft (principal)
CPT/HCPCS: 93798

== ENCOUNTER 2022-03-07 06:30 | Outpatient (RCR) | payer OTHER, SELFPAY ==
[2021-12-05 10:23] VITALS: BMI 47.2
== END 2022-04-04 23:59 ==
LOC: CR 06:30
PROVIDERS: PCP Family Medicine; Referring Provider Internal Medicine Cardiovascular Disease; Visit Provider Internal Medicine Cardiovascular Disease
DX: Z95.1 Presence of aortocoronary bypass graft (principal)
CPT/HCPCS: 93798